=== PATIENT | female | born 1990 | race Caucasian/White ===

== ENCOUNTER 2019-12-21 00:16 | Emergency (ER) | payer OTHER ==
[2019-12-21] MEDS ORDERED: Sodium Chloride 0.9% 1,000 ML ONE ×2 (00:47→03:04)
[2019-12-21] MEDS ORDERED: Fentanyl 100 MCG/2 ML VIAL ONE (00:47)
[2019-12-21 01:10] LABS: Hemoglobin 12.4 g/dL (12.0-16.0); Mean Corpuscular HGB CONC 29.7 g/dL (32.0-36.0); Mean Corpuscular Hemoglobin 23.1 pg (27.0-31.0); Mean Corpuscular Volume 77.9 fL (78.0-98.0); Platelet Count 342 thou/uL (130-400); RBC Distribution Width 15.3 % (11.5-14.5); Red Blood Cell (RBC) Count 5.38 mill/uL (4.20-5.40); White Blood Cell (WBC) Count 18.3 thou/uL (4.8-10.8)
[2019-12-21 01:14] LABS: #Basophils 0.1 thou/uL (0.0-0.2); #Eosinphils 0.3 thou/uL (0.0-0.7); #Lymphocytes 3.7 thou/uL (1.20-3.40); #Monocytes 1.3 thou/uL (0.11-0.59); #Neutrophils 12.9 thou/uL (1.40-6.50); %Basophils 0.7 % (0.0-1.0); %Eosinophils 1.7 % (0.0-10.0); %Monocytes 7.1 % (0.0-10.0); %Neutrophils 70.5 % (42.0-75.0); Anisocytosis SLIGHT = 6-15 cells (100X) (0-5/hpf); MDiff Complete? YES; Microcytosis SLIGHT = 6-15 cells (100X) (0-5/hpf); Platelet Morphology Comment Appears Adequate
[2019-12-21 01:22] LABS: ALT (SGPT) 13 U/L (8-55); AST (SGOT) 11 U/L (5-34); Albumin 4.5 g/dL (3.5-5.0); Alkaline Phosphatase 88 U/L (40-110); Anion Gap 17 mmol/L (10-20); BUN (Urea Nitrogen) 17 mg/dL (7.0-18.7); Bilirubin, Total 0.2 mg/dL (0.2-1.2); Calc. Creatinine Clearance 0 mL/min (70-130); Calcium 9.8 mg/dL (7.8-10.44); Carbon Dioxide 25 mmol/L (22-29); Chloride 99 mmol/L (98-107); Estimated GFR-MDRD 81; Globulin 3.9 g/dL (2.4-3.5); Glucose 285 mg/dL (70-105); Potassium 4.4 mmol/L (3.5-5.1); Protein, Total 8.4 g/dL (6.0-8.3); Sodium 137 mmol/L (136-145)
[2019-12-21 01:41] LABS: Bilirubin Negative (Negative); Blood, Urine Large (Negative); Clarity Cloudy (Clear); Glucose, Urine (Dipstick) >=1000 mg/dL (Negative); Ketone, Urine Negative (Negative); Leukocyte Large (Negative); Nitrite Positive (Negative); Protein, Urine (Dipstick) > or equal to 300 mg/dL (Neg-Trace); Specific Gravity, Urine 1.025 (1.005-1.030); Urobilinogen 0.2 mg/dL (Less than 2)
[2019-12-21 01:42] LABS: Pregnancy Test - Urine (BHCG) Negative (Negative); Pregu Control Background? CLEAR/WHITE (CLR/WHITE); Pregu Control Bar Appear? YES (CONTROL BAR); Specific Gravity 1.025 (1.002-1.036)
[2019-12-21 01:45] LABS: Bacteria/HPF 4+ HPF (None Seen); Squamous Epithelial 0-3 HPF (0-3); WBC/HPF Greater Than 50 HPF (0-3)
[2019-12-21 01:50] LABS: Amphetamine Not Detected (NotDetected); Barbiturates Screen Not Detected (NotDetected); Benzodiazepine Screen Not Detected (NotDetected); Cocaine Metabolite Screen Not Detected (NotDetected); Medtox Control Line Valid? VALID (VALID); Methadone Not Detected (NotDetected); Methamphetamine Not Detected (NotDetected); Opiate Screen Not Detected (NotDetected); Oxycodone Screen Not Detected (NotDetected); Phencyclidine (PCP) Not Detected (NotDetected); THC/Cannabinoid Screen Not Detected (NotDetected); Tricyclic Screen Not Detected (NotDetected)
[2019-12-21] MEDS ORDERED: Ketorolac Tromethamine 30 MG/ML VIAL ONE (03:04)
[2019-12-21] MEDS ORDERED: cefTRIAXone\\ROCEPHIN 1 GM VIAL ONE (03:04)
--- NOTE | 2019-12-21 07:56 | CT ---
PRELIMINARY REPORT/[facility] EMERGENCY AFTER HOURS PROCEDURE: EXAM: CT Abdomen and Pelvis with and without Intravenous Contrast CLINICAL HISTORY: 29-year-old female with history of hypertension, diabetes, presents with right-side d abdominal pain with pain in right low back that started this morning. She denies recent unusual activity or injury. No recent illness. No fever or chills. No nausea, vomiting, or diarrhea. No urina ry symptoms. Pain is worse with certain positions, decreases when she bends over forward or flexes her hips and pulls her knees in to her chest TECHNIQUE: Axial computed tomography images of the abdomen and pelvis with and without intravenous co ntrast. CONTRAST: With and without; 96ml ISOVUE 370 RT AC COMPARISON: None provided. FINDINGS: LUNG BASES: No basilar airspace consolidation or pleural effusion. LIVER: The liver is enlarged measuring 20.8 cm in length. GALLBLADDER AND BILE DUCTS: Cholecystectomy clips in the gallbladder fossa. No ductal dilation. PANCREAS: Unremarkable. SPLEEN: Unremarkable. ADRENAL GLANDS: Unremarkable. KIDNEYS, URETERS, AND BLADDER: Unremarkable. No hydronephrosis or nephrolithiasis. No ureteral or zhao dder calculi. Diffuse bladder wall thickening. STOMACH AND BOWEL: No obstruction. No wall thickening. No CT evidence of colitis or acute diverticuli tis. APPENDIX: No CT evidence for appendicitis. PERITONEUM: No free fluid. No free air. LYMPH NODES: Enlarged bilateral inguinal lymph nodes measure up to 1 cm in short axis. REPRODUCTIVE: Unremarkable as visualized. VASCULATURE: No aortic aneurysm. BONES: No fracture or suspicious osseous abnormality. ABDOMINAL WALL AND SOFT TISSUES: Unremarkable. IMPRESSION: Diffuse bladder wall thickening which may be secondary to under distention or cystitis. Correlation with urinalysis is recommended. Nonspecific bilateral inguinal lymphadenopathy. Hepatomegaly. Status post cholecystectomy. ELECTRONICALLY SIGNED BY: Tor Echeverria MD Dec 21, 2019 2:36:59 AM CDT FINAL REPORT EMERGENCY AFTER HOURS NONCONTRAST CT ABDOMEN AN PELVIS: HISTORY: Right-sided abdominal pain and right low back pain. COMPARISON: None. IMPRESSION: 1. Hepatomegaly with the liver measuring 20.8 cm in craniocaudal dimensions. 2. Evidence of cholecystectomy. 3. No renal or ureteral calculi are seen bilaterally, and there is no hydronephrosis. 4. Urinary bladder is incompletely distended. Lynn of the urinary bladder do appear mildly thickened , but this is likely related to incomplete distention. 5. Nonspecific increased number and mildly prominent bilateral inguinal lymph nodes with largest lymp h nodes measuring 11 mm in short axis dimension. 6. Appendix normal in caliber without CT findings to suggest appendicitis. 7. Findings are in agreement with preliminary report by [facility]. Transcribed Date/Time: 12/21/2019 8:01 AM
[2019-12-21] MEDS ORDERED: Iopamidol 370 76% 100 ML VIAL ONE (09:00)
== END 2019-12-21 04:10 | disposition home or self-care (01) ==
LOC: NAV ERS 00:16
DX: N10 Acute pyelonephritis (principal); E10.9 Type 1 diabetes mellitus without complications; D50.9 Iron deficiency anemia, unspecified; I10 Essential (primary) hypertension; F41.9 Anxiety disorder, unspecified; F17.210 Nicotine dependence, cigarettes, uncomplicated
CPT/HCPCS: 74178; 80053; 80306; 81003; 81015; 81025; 83605; 85025; 96361; 96374; 96375; J0696; J1885; J3010; J7050; Q9967